=== PATIENT | male | born 1970 | race American Indian/Alaskan Native ===

== ENCOUNTER 2018-11-02 10:09 | Emergency (ER) | payer BC ==
[2018-11-02] MEDS ORDERED: IBUPROFEN PO ONE (10:27)
[2018-11-02 10:28] VITALS: BP 159/94
--- NOTE | 2018-11-02 10:28 | Emergency Department Report ---
Stated Complaint: LT HAND INJURY Time Seen by Provider: 11/02/18 10:26 - HPI History of Present Illness: CO L HAND PAIN SP HITTING BAG WITHOUT WRAP, YEST N/V INTACT RAPID CAP REFILL PMH HTN HPLD MSE COMPLETED MSE screening note: Focused history and physical exam performed. Due to findings the following was ordered: ED Disposition for MSE Condition: Stable
--- NOTE | 2018-11-02 10:57 | XRay Report ---
LEFT HAND RADIOGRAPHS INDICATION: Hand pain in fourth and fifth digits. COMPARISON: None similar at this institution. FINDINGS: AP, lateral and oblique left hand radiographs demonstrate subtle oblique lucency about the fourth metacarpal neck. Mild diffuse soft tissue swelling along dorsum of the hand as well. Intact remainder bony articulation. Mild degenerative spurring at PIP joint of the index finger also noted with mild surrounding soft tissue prominence/swelling. CONCLUSION: 1. Left fourth metacarpal neck subtle acute nondisplaced fracture suspected as also diffuse soft tissue swelling along dorsum of the hand, as described. Directed clinical correlation recommended. 2. Few other findings as degenerative changes at PIP joint of the second digit. Thank you for the opportunity to participate in this patient's care.
--- NOTE | 2018-11-02 11:01 | Emergency Department Report ---
ED Extremity Problem HPI - General Chief complaint: Extremity Injury, Upper Stated complaint: LT HAND INJURY Time Seen by Provider: 11/02/18 10:26 Source: patient Mode of arrival: Ambulatory Limitations: No Limitations - History of Present Illness Initial comments: Patient is a 48-year-old (F mechanism male who was exercising yesterday and injured his left hand. One of the punches on a heavy bag he felt pain in his left hand. Overnight it has become more swollen. Patient has some decreased range of motion secondary to pain. Pain is 8 out of 10 in severity. Severity scale (0 -10): 5 - Related Data Previous Rx's Medication Instructions Recorded Last Taken Type HYDROcodone/ACETAMINOPHEN 1 each PO Q6HR PRN #12 tablet 11/02/18 Unknown Rx [Hydrocodone-Acetamin 5-325 mg] Ibuprofen [Ibu] 800 mg PO Q8H PRN #20 tablet 11/02/18 Unknown Rx Allergies Allergy/AdvReac Type Severity Reaction Status Date / Time No Known Allergies Allergy Verified 11/02/18 10:25 ED Review of Systems ROS: Stated complaint: LT HAND INJURY Other details as noted in HPI Comment: All other systems reviewed and negative ED Past Medical Hx - Past Medical History Hx Hypertension: Yes Additional medical history: hyperlipidemia - Social History Smoking Status: Never Smoker Substance Use Type: Alcohol - Medications Home Medications: Home Medications Medication Instructions Recorded Confirmed Last Taken Type HYDROcodone/ACETAMINOPHEN 1 each PO Q6HR PRN #12 tablet 11/02/18 Unknown Rx [Hydrocodone-Acetamin 5-325 mg] Ibuprofen [Ibu] 800 mg PO Q8H PRN #20 tablet 11/02/18 Unknown Rx ED Physical Exam - General Limitations: No Limitations - Head Head exam: Present: atraumatic, normocephalic - Eye Eye exam: Present: normal appearance - ENT ENT exam: Present: mucous membranes moist - Neck Neck exam: Present: normal inspection - Cardiovascular Cardiovascular Exam: Present: regular rate, normal rhythm. Absent: systolic murmur, diastolic murmur, rubs, gallop - Expanded Upper Extremity Exam Left Hand Wrist exam: Present: tenderness, swelling (patient with loss of contour to the fourth MCP joint). Absent: full ROM ED Course Vital Signs 11/02/18 10:25 Temperature 98.6 F Pulse Rate 103 H Respiratory 16 Rate Blood Pressure 159/94 O2 Sat by Pulse 97 Oximetry ED Medical Decision Making - Radiology Data Radiology results: image reviewed (patient with a nondisplaced fourth distal metacarpal fracture.) - Medical Decision Making Patient be placed in ulnar gutter splint and given follow-up with orthopedics. Patient given pain meds for fracture care. Patient discharged home in stable condition. Critical care attestation.: If time is entered above; I have spent that time in minutes in the direct care of this critically ill patient, excluding procedure time. ED Disposition Clinical Impression: Boxers fracture Qualifiers: Encounter type: initial encounter Fracture type: closed Qualified Code(s): S62.339A - Displaced fracture of neck of unspecified metacarpal bone, initial encounter for closed fracture Disposition: TO HOME OR SELFCARE Is pt being admited?: No Does the pt Need Aspirin: No Condition: Stable Instructions: Boxer Fracture (ED) Referrals: NIRMALA SEGOVIA MD [Staff Physician] - 3-5 Days Time of Disposition: 11:01
== END 2018-11-02 11:29 | disposition home or self-care (01) ==
LOC: ED 10:09
DX: S62.331A Displaced fracture of neck of second metacarpal bone, left hand, initial encounter for closed fracture (principal); I10 Essential (primary) hypertension; E78.5 Hyperlipidemia, unspecified; W01.198A Fall on same level from slipping, tripping and stumbling with subsequent striking against other object, initial encounter; Y93.89 Activity, other specified; Y92.488 Other paved roadways as the place of occurrence of the external cause; Y99.8 Other external cause status